=== PATIENT | female | born 1975 | race Caucasian/White ===

== ENCOUNTER 2020-09-06 15:18 | Outpatient (CLI) | payer BC, SELFPAY ==
--- NOTE | 2020-09-06 15:26 | XR_ITS ---
WS: [id number] Exam: XR foot LT 2V [id number] Date/Time of Exam: 09/06/2020 3:29 PM Reason For Exam: FOOT PAIN, LEFT No fracture or dislocation. Large plantar heel spur noted. No soft tissue foreign bodies are seen. XR/XR foot LT 2V [id number] IMPRESSION: 1. No fracture identified. Large plantar heel spur.
== END 2020-09-06 15:19 | disposition home or self-care (01) ==
PROVIDERS: PCP Family Medicine; Visit Provider Family Medicine
DX: M79.672 Pain in left foot (principal); M77.32 Calcaneal spur, left foot
CPT/HCPCS: 73620

== ENCOUNTER → 2021-08-13 07:59 | Outpatient (BNVA) | payer BC, SELFPAY | PROVIDERS: PCP Family Medicine; Visit Provider Podiatrist Foot & Ankle Surgery | DX: M25.571 Pain in right ankle and joints of right foot (principal); M79.671 Pain in right foot; M25.871 Other specified joint disorders, right ankle and foot; M25.371 Other instability, right ankle; G89.29 Other chronic pain; M76.71 Peroneal tendinitis, right leg | CPT/HCPCS: 73610 ==

== ENCOUNTER 2021-12-14 08:16 | Day surgery (SDC) | payer BC, SELFPAY ==
[2021-12-14] VITALS (15 sets, daily range): BP systolic 107–157; BP diastolic 68–106; PULSE 72–100; RESP 12–18; TEMP 36.3–36.6; O2SAT 95–100
--- NOTE | 2021-12-14 | SCC_ITS ---
Procedure done: Right peroneal tendon repair. CPT code 06361 Right modified Brostr?m. CPT code 64404 Deep hardware removal right foot. CPT code 97072 54 seconds of fluoroscopic guidance, for a cumulative dose of 1.5 mGy, was provided to Dr. Peres by the radiology department. C-arm images of the RIGHT foot were saved for the patient's permanent record. [facility]
[2021-12-14] MEDS: sodium chloride 0.9% 1,000 ML 30 ML IV (08:54)
[2021-12-14] MEDS: CELEcoxib 200 mg Capsule 400 MG PO (08:57)
[2021-12-14] MEDS: gabapentin 300 mg Capsule PO (08:57)
[2021-12-14] MEDS: HYDROmorphone 1 mg/mL INJ 1 mL 0.5 MG IVP (09:22)
--- NOTE | 2021-12-14 09:47 | SUR.PREOP ---
0925-Timeout was performed at bedside with anesthesia, block was performed and patient tolerated well.
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
--- NOTE | 2021-12-14 09:51 | P.ANESASSM_ITS ---
Pre-Anesthetic Assessment Height/Weight: Height 1.7 m Weight 97.522 kg Temp Pulse Resp BP Pulse Ox O2 Del Method 97.5 F L 79 17 157/106 96 12/14/21 08:45 12/14/21 08:45 12/14/21 09:22 12/14/21 08:45 12/14/21 09:22 12/14/21 08:45 Preop Diagnosis: Chronic right lateral ankle instability with impingement Operation Date: 12/14/21 09:45 Proposed Procedures p Peroneal tendon repair, modified Brostr?m, ankle scope and possible calcaneal osteotomy all right lower extremity 27087,72315,73634,M25.871,M25.371,M25. 571,M76.71(Right) - DEJA Greenberg Tendon Repair Foot(Right) - DEJA Greenberg Decompression Osteotomy(Right) - DEJA Greenberg Brostrom Procedure Modified Rashmi(Right) - Vince Peres DPM Familial anesthetic complications: None Was Beta Clint taken within 24 hours: N/A Was Clonidine taken within 24 hours: N/A Last intake: Intake Last Liquid Date 12/13/21 Last Liquid Time 23:30 Last Solid Date 12/13/21 Last Solid Time 22:00 Social No alcohol and No tobacco Exam alert, oriented x 3, clear to auscultation bilaterally and regular rate & rhythm Airway Submandibular: within normal limits Cervical ROM: within normal limits Mallampati: Class II Dentition: full Pulmonary seasonal allergies Metabolic Morbid Obesity Anesthetic Plan ASA status: 2 Anesthesia: General and Regional (specify below) (Popliteal block) Medications/Allergies Home Medications Medication Instructions Recorded Confirmed Last Taken Type cetirizine 10 mg capsule (Zyrtec) 10 mg PO DAILY PRN Allergy Symptoms 08/13/21 12/14/21 12/13/21 History multivitamin 1 tab PO DAILY 08/13/21 12/14/21 12/13/21 History naproxen sodium 220 mg capsule 220 mg PO BID PRN Pain 08/13/21 12/14/21 12/13/21 History (Aleve) fluticasone propionate 50 2 spray intranasal DAILY 12/13/21 12/14/21 12/13/21 History mcg/actuation nasal spray,suspension Allergies Allergy/AdvReac Type Severity Reaction Status Date / Time codeine Allergy Intermediate ADR/ALGY-Hy Verified 12/14/21 08:42 potension dermaplast Allergy ALGY-Rash Uncoded 12/13/21 12:18 Current Medications Generic Name Dose Route Start Last Admin Trade Name Dexter PRN Reason Stop Dose Admin Sodium Chloride 1,000 mls @ 30 mls/hr 12/14/21 08:30 12/14/21 08:54 Sodium Chloride 0.9% IV 12/15/21 08:29 30 mls/hr .Q24H MYKE Administration Data Anesthesia Cardiac Studies: No Data to Display Anesthesia Procedures Nerve Block Nerve Block 1: Main Anesthesia: general anesthesia Time Out Performed: Yes Consent: requested by attending/covering physician, from patient, risks and benefits reviewed and patient agrees to proceed Nerve block location: popliteal (right) Anesthesia monitors applied: pulse oximetry, EKG, BP cuff and oxygen Nerve block position: semi sitting Anesthetic Used: ropivicaine 0.5% Amount of anesthesia used (mL): 30 Ultrasound used to: recognize landmarks Nerve Stimulator Used?: No Interscalene/Femoral BLK: 4 stimuplex 21 g needle used for position and inplane approach Injection: neg aspiration of heme Patient Tolerated Procedure: well Complications: none
--- NOTE | 2021-12-14 09:53 | W.PM.OPSUD ---
Surgery/Procedure H&P Update DATE OF PROCEDURE: December 14, 2021 DATE H&P PERFORMED: 08/13/21 CHANGES TO PREVIOUS DOCUMENTATION: None PREOP DIAGNOSIS: Chronic right lateral ankle instability with impingement PLANNED PROCEDURE: Operation Date: 12/14/21 09:45 Proposed Procedures p Peroneal tendon repair, modified Brostr?m, ankle scope and possible calcaneal osteotomy all right lower extremity 91520,24765,44038,M25.871,M25.371,M25.571,M76.71(Right) - DEJA Greenberg Tendon Repair Foot(Right) - DEJA Greenberg Decompression Osteotomy(Right) - DEJA Greenbergstrom Procedure Modified Rashmi(Right) - Vince Peres DPM
[2021-12-14] MEDS: ceFAZolin 2,000 MG in sodium chloride 0.9% (plus) 50 ML 100 MG IV (10:01)
--- NOTE | 2021-12-14 12:34 | XR_ITS ---
WS: [id number] Right foot, 3 views, 12/14/2021 Clinical Data: post op Comparison: Right ankle, 08/13/2021. Findings: No fractures or dislocations are seen. No bone destruction or erosion is noted. The joint spaces and soft tissues are normal. Small orthopedic anchors were removed from the distal right fibula and from the lateral talus. There is a plantar spur. XR/XR foot RT min 3V* [id number] Impression: Removal of orthopedic anchors from distal right fibula and lateral talus.
--- NOTE | 2021-12-14 12:59 | SUR.PHASEI ---
12:25 RECEIVED PT FROM OR STAFF. SPONTANEOUS RESPIRATIONS. VENTILATING WELL. NSR ON MONITOR. 12:40 ORAL AIRWAY DC'ED. PT RESPONDING TO VERBAL. AIRWAY CLEAR. 12:45 BEDSIDE X RAYS DONE. 12:50 RESPONDS TO VERBAL COMMANDS. ROM AND SENSATION OF RIGHT TOES.
--- NOTE | 2021-12-14 13:36 | ANE.PACU2 ---
Inpatient post-anesthesia follow up: Airway intact: Yes Vital signs: Temperature 97.8 F Pulse Rate 85 Respiratory Rate 16 Blood Pressure 150/98 Pulse Oximetry 96 Oxygen Delivery Me thod Room Air Oxygen Flow Rate 8 Fraction of Inspir ed Oxygen Hydration adequate: Yes Nausea and vomiting: No Pain level: 2 Pain level: BP at pre op baseline Mental status: Baseline
[2021-12-14] MEDS: oxyCODONE-APAP 5-325 mg Tablet 1 TAB PO (13:42)
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
== END 2021-12-14 14:10 | disposition home or self-care (01) ==
PROVIDERS: PCP Family Medicine; Visit Provider Podiatrist Foot & Ankle Surgery
PROC: (CPT 20680; 2021-12-14 09:45)
PROC: (CPT 27698; 2021-12-14 09:45)
DX: M25.371 Other instability, right ankle (principal); E66.01 Morbid (severe) obesity due to excess calories; Z68.33 Body mass index [BMI] 33.0-33.9, adult; M25.571 Pain in right ankle and joints of right foot; G89.29 Other chronic pain; M76.71 Peroneal tendinitis, right leg
CPT/HCPCS: 20680; 27658; 27695; 73630; 76000; C1713; J1100; J1170; J1200; J2250; J2405; J2704; J2795; J3010; J3490; J7030

== ENCOUNTER → 2021-12-27 14:02 | Outpatient (BNVA) | payer BC, SELFPAY | PROVIDERS: PCP Family Medicine; Visit Provider Podiatrist Foot & Ankle Surgery | DX: Z98.890 Other specified postprocedural states (principal); M79.89 Other specified soft tissue disorders | CPT/HCPCS: 73610 ==

== ENCOUNTER 2021-12-27 14:54 | Outpatient (CLI) | payer BC, SELFPAY | END 2021-12-27 14:55 | disposition home or self-care (01) | LOC: SPT 14:55 | PROVIDERS: PCP Family Medicine; Visit Provider Podiatrist Foot & Ankle Surgery | DX: Z47.89 Encounter for other orthopedic aftercare (principal) | CPT/HCPCS: L1902 ==

== ENCOUNTER 2022-01-02 13:28 | Outpatient (RCR) | payer BC, SELFPAY | END 2022-01-09 23:59 | disposition home or self-care (01) | LOC: SPT 13:28 | PROVIDERS: PCP Family Medicine; Visit Provider Podiatrist Foot & Ankle Surgery | DX: Z47.89 Encounter for other orthopedic aftercare (principal) | CPT/HCPCS: 97110; 97161 ==

== ENCOUNTER 2022-01-10 06:00 | Outpatient (RCR) | payer BC, SELFPAY | END 2022-02-08 23:59 | disposition home or self-care (01) | LOC: SPT 06:00 | PROVIDERS: PCP Family Medicine; Visit Provider Podiatrist Foot & Ankle Surgery | DX: Z47.89 Encounter for other orthopedic aftercare (principal); M25.571 Pain in right ankle and joints of right foot | CPT/HCPCS: 97110 ==

== ENCOUNTER 2022-02-09 06:00 | Outpatient (RCR) | payer BC, SELFPAY | END 2022-02-27 23:59 | disposition home or self-care (01) | LOC: SPT 06:00 | PROVIDERS: PCP Family Medicine; Visit Provider Podiatrist Foot & Ankle Surgery | DX: Z47.89 Encounter for other orthopedic aftercare (principal); M25.571 Pain in right ankle and joints of right foot | CPT/HCPCS: 97110 ==

== ENCOUNTER 2022-11-29 15:24 | Outpatient (CLI) | payer BC, SELFPAY ==
--- NOTE | 2022-11-29 15:41 | MM_ITS ---
WS: [id number] BILATERAL 3D TOMOSYNTHESIS DIGITAL SCREENING MAMMOGRAPHY WITH CAD CLINICAL INFORMATION: screening HISTORY: Screening mammogram. No current complaints. COMPARISON: 2019 TECHNIQUE: Bilateral CC and MLO views. FINDINGS: The breasts are composed of heterogeneous fibroglandular density tissue, which can limit the detectio n of small underlying mass lesions. Nodular parenchymal densities RIGHT breast. No suspicious mass, a symmetry, calcifications, or architectural distortion. No evidence of malignancy. Punctate and lucent centered calcifications. MM/[place] [id number] IMPRESSION: BI-RADS: 2-Benign FOLLOW UP: 1 Year Follow-up Recommend return to annual screening mammography.
== END 2022-11-29 15:25 | disposition home or self-care (01) ==
LOC: RAD 15:38 → MOBLMAM 15:40
PROVIDERS: PCP Family Medicine; Visit Provider Family Medicine
DX: Z12.31 Encounter for screening mammogram for malignant neoplasm of breast (principal)
CPT/HCPCS: 77063; 77067

== ENCOUNTER → 2022-12-02 10:18 | Outpatient (BNVA) | payer BC, SELFPAY | PROVIDERS: PCP Family Medicine; Visit Provider Family Medicine | DX: I10 Essential (primary) hypertension (principal) | CPT/HCPCS: 80053; 80061; 84443 ==

== ENCOUNTER → 2023-01-03 09:48 | Outpatient (BNVA) | payer BC, SELFPAY | PROVIDERS: PCP Family Medicine; Visit Provider Family Medicine | DX: I10 Essential (primary) hypertension (principal) | CPT/HCPCS: 80048; 80053; 80061; 84443 ==

== ENCOUNTER 2023-10-08 05:47 | Day surgery (SDC) | payer BC, SELFPAY ==
[2023-10-08] VITALS (10 sets, daily range): BP systolic 109–155; BP diastolic 62–95; PULSE 69–94; RESP 12–18; TEMP 36.1–36.8; O2SAT 91–97; BMI 32.7
[2023-10-08] MEDS: ketorolac 30 mg/mL INJ IVP (06:24)
[2023-10-08] MEDS: sodium chloride 0.9% 1,000 ML 30 ML IV (06:28)
[2023-10-08] MEDS: acetaminophen 1,000 MG/100 ML PIGGYBACK 400 MG IV (06:28)
[2023-10-08] MEDS: scopolamine 1.5 Patch 1 PATCH TRANSDERMA (06:31)
--- NOTE | 2023-10-08 06:48 | ANES.PREANE2 ---
Pre-Anesthetic Assessment Height/Weight: Height 1.7 m Weight 94.801 kg Temp Pulse Resp BP Pulse Ox O2 Del Method 97.3 F L 80 17 155/95 96 Room Air 10/08/23 06:13 10/08/23 06:13 10/08/23 06:13 10/08/23 06:13 10/08/23 06:13 10/08/23 06:14 Operation Date: 10/08/23 07:00 Proposed Procedures p Cubital Tunnel Release(Left) - Tyron Worcester, DO s Ulnar Nerve Transposition(Left) - Tyron Worcester, DO Familial anesthetic complications: None Was Beta Clint taken within 24 hours: N/A Was Clonidine taken within 24 hours: N/A Last intake: Intake Last Liquid Date 10/07/23 Last Liquid Time 23:00 Last Solid Date 10/07/23 Last Solid Time 19:00 Social No alcohol and No tobacco Airway Mallampati: Class I Dentition: other (R lower bridge) CV/HEM Hypertension Metabolic Hyperlipidemia Anesthetic Plan ASA status: 2 Anesthesia: MAC Risk of > 500 ml blood loss (7ml/kg in children): No Medications/Allergies Home Medications Medication Instructions Recorded Confirmed Last Taken Type cetirizine 10 mg capsule (Zyrtec) 10 mg PO DAILY PRN Allergy Symptoms 08/13/21 10/07/23 10/07/23 History multivitamin 1 tab PO DAILY 08/13/21 10/08/23 10/07/23 History fluticasone propionate 50 2 spray intranasal DAILY 12/13/21 10/07/23 10/07/23 History mcg/actuation nasal spray,suspension ibuprofen 800 mg tablet 800 mg PO Q8H 7 days #21 tabs 12/17/21 10/07/23 Unknown Rx ASO to the right #1 ea 12/27/21 10/07/23 Unknown Rx scopolamine base 1 mg over 3 days 1 patch transdermal Q3D PRN nausea 11/07/22 10/07/23 Unknown Rx transdermal patch and vomiting #10 ea pseudoephedrine HCl 30 mg tablet 30 mg PO Q6H PRN nasal congestion 09/16/23 10/07/23 10/07/23 Rx (Sudafed) #60 tabs Allergies Allergy/AdvReac Type Severity Reaction Status Date / Time codeine Allergy Intermediate ADR/ALGY-Hy Verified 10/08/23 06:08 potension hydrochlorothiazide AdvReac Intermediate hyponatremi Verified 10/08/23 06:08 a dermaplast Allergy ALGY-Rash Uncoded 10/08/23 06:08 Current Medications Generic Name Dose Route Start Last Admin Trade Name Freq PRN Reason Stop Dose Admin Sodium Chloride 1,000 mls @ 30 mls/hr 10/08/23 06:15 10/08/23 06:28 Sodium Chloride 0.9% IV 10/09/23 06:14 30 mls/hr .Q24H MYKE Administration PFSH Anesthesia Medical History (Updated 10/07/23 @ 15:29 by Marcos Quinonez MD) Hyperlipidemia Hypertension Social History Smoking and tobacco/nicotine status: former use of tobacco/nicotine Alcohol intake: never Data Anesthesia Cardiac Studies: No Data to Display
--- NOTE | 2023-10-08 06:57 | P.HP_ITS ---
Same Day Surgery H&P Indication for Procedure/HPI DATE OF PROCEDURE: October 08, 2023 CHIEF COMPLAINT/INDICATIONFOR SURGICAL PROCEDURE: Left cubital tunnel syndrome PREOP DIAGNOSIS: Left cubital tunnel syndrome PLANNED PROCEDURE: Operation Date: 10/08/23 07:00 Proposed Procedures p Cubital Tunnel Release(Left) - Tyron Stefano, DO s Ulnar Nerve Transposition(Left) - Tyron Calaveras, DO Medications/Allergies* Home Medications Medication Instructions Recorded Confirmed Type cetirizine 10 mg capsule (Zyrtec) 10 mg PO DAILY PRN Allergy Symptoms 08/13/21 10/07/23 History multivitamin 1 tab PO DAILY 08/13/21 10/08/23 History fluticasone propionate 50 2 spray intranasal DAILY 12/13/21 10/07/23 History mcg/actuation nasal spray,suspension Allergies/Adverse Reactions Allergy/AdvReac Type Severity Reaction Status Date / Time codeine Allergy Intermediate ADR/ALGY-Hy Verified 10/08/23 06:08 potension hydrochlorothiazide AdvReac Intermediate hyponatremi Verified 10/08/23 06:08 a dermaplast Allergy ALGY-Rash Uncoded 10/08/23 06:08 Current Medications: Generic Name Dose Route Start Last Admin Trade Name Freq PRN Reason Stop Dose Admin Sodium Chloride 1,000 mls @ 30 mls/hr 10/08/23 06:15 10/08/23 06:28 Sodium Chloride 0.9% IV 10/09/23 06:14 30 mls/hr .Q24H MYKE Administration Pertinent History/Comorbid Conditions* Medical History (Updated 10/07/23 @ 15:29 by Marcos Quinonez MD) Hyperlipidemia Hypertension Social History Smoking and tobacco/nicotine status: former use of tobacco/nicotine Alcohol intake: never Pertinent Exam Findings alert, oriented x 3, operative site marked and procedure specific exam findings Please refer to detailed orthopedic examination on 08/19/2023: Left Upper Extremity: Negative Spurling's and normal C-spine range of motion. Negative Sierra's. Negative Tinel's on the left shoulder. Mild tenderness to palpation and positive Tinel's over the elbow with some radicular and numbness and tingling in the ulnar nerve distribution. negative median nerve compression test. negative Tinel's at the carpal tunnel. neg Phalen's. Negative Tinel's over the superficial radial nerve. Negative tenderness over the lateral epicondyle. Negative radial tunnel. No Tinel's over the radial tunnel and negative resistance of the middle finger of the left hand. Mild intrinsic weakness noted, good thenar strength and no atrophy. Recommendations Surgery/Procedure today Other Plans: Plan to proceed to the OR left cubital tunnel release with pulmonary transposition Patient understands risk benefits complication alternatives of surgery elects proceed with surgery invention all questions answered at this time. Coding Level of Care Code Acute Code for [facility]
[2023-10-08] MEDS: ceFAZolin 2,000 MG in sodium chloride 0.9% (plus) 50 ML 100 MG IV (07:02)
[2023-10-08] MEDS: ROPivacaine 0.5% SDV 30 mL 25 MG INJECTION (07:31)
[2023-10-08] MEDS: lidocaine-epi 1% 20 mL INJ 5 ML INJECTION (07:31)
--- NOTE | 2023-10-08 08:04 | P.BOP_ITS ---
Date of Procedure: [10/08/2023] Surgeon: Tyron Agarwal DO Body Builder Apprentice(s): Michoacano Agarwal PA-C Procedure(s) performed: Left cubital tunnel release (ulnar nerve decompression at the elbow) Findings of the procedure(s): Patient found to have left cubital tunnel syndrome underwent left cubital tunnel release without any issues or complications. Estimated blood loss: 5 mL Specimen(s) removed: None Post-operative diagnosis: Left cubital tunnel syndrome
--- NOTE | 2023-10-08 08:07 | P.OP_ITS ---
Operative Report Date of procedure: October 08, 2023 Surgeon: Tyron Agarwal DO Home Visitor: Michoacano Agarwal PA-C: PA was necessary for assistance in this case with hand positioning to execute the procedure, retraction and protection of neurovascular structures as well as to assist with wound closure and dressing application. Procedure: Preoperative diagnosis: Left cubital tunnel syndrome Post-op diagnosis:? Left?cubital?tunnel syndrome Post-op findings: See operative note Procedure done: Left?cubital?tunnel release(ulnar nerve decompression) Surgeon: Tyron Agarwal DO Estimated blood loss: 5 cc Tourniquet Time: 18 minutes IV fluids: See anesthesia record Complications: None Findings: See operative report narrative Condition: stable Disposition: same day Brief History: Patient is a pleasant 48-year-old female was seen evaluated in the outpatient setting for Left ulnar nerve neuropathy at the elbow.? Patient had EMG findings that demonstrated normal peripheral nerves however patient's failed conservative treatment and on clinical examination has positive Tinel's directly over the cubital tunnel consistent with her symptomatology.? ?On my examination in the office patient findings are consistent with this preoperative diagnosis. We had detailed discussion in office about continued nonoperative intervention versus operative intervention.? Patient understands the risk benefits complications alternatives to surgical and nonsurgical treatment options.? Patient understands the risks include but not limited to make it better, make it worse, infection, permanent injury to nerve, decreased function and sensation to the hand with persistent weakness.? Given these risks patient understands and agrees to proceed with current plan.? Patient elects to proceed with a Left?cubital?tunnel release with possible ulnar nerve transposition. all questions answered. Procedure: Patient was seen and evaluated in the preoperative holding area.? The consent that was filled out in office was reviewed with patient and confirmed to be appropriate for Left ulnar nerve?cubital?tunnel release and possible ulnar nerve transposition.? Correct extremity was then marked.? Patient was seen evaluated by the preoperative team as well as anesthesia department.? Once cleared for surgery patient was then taken to the operative suite and transported onto the operative table all bony prominences were well-padded and patient was secured to the table.? Left upper extremity was placed on an armboard.? Patient then underwent anesthesia per the anesthesia department. Patient's Left upper extremity was then prepped and draped in standard orthopedic fashion.? This point a final timeout was performed. Patient received appropriate preop antibiotics. The Left upper extremity sterile tourniquet was applied. Esmarch tourniquet was used to exsanguinate the operative extremity and was insufflated to 250 mmHg.? Standard curvilinear incision was made centering over the ulnar nerve between the medial epicondyle and olecranon process.? Sharp scalpel excision through skin and subcutaneous tissue was performed.? Once I encountered subcutaneous tissue I then utilized dissection scissors to spread in the path of the [facility] and care was made to protect any nerve branches throughout this case.? I then utilized a scalpel to complete my dissection directly on over to the flexor pronator mass and elevated this fat tissue directly off of the fascia.? I started my dissection of the ulnar nerve the nerve proximally.? Once identified I then utilized Littler dissection scissors and decompress the nerve completely and proximally and utilized blunt dissection to make sure there was no entrapment proximally..? Once decompressed proximally I then traced the nerve distal through Blanchard's ligament and as it entered the FCU fascia aponeurosis and completed by decompression distally.? Patient's most pronounced area of entrapment was over Blanchard's ligament where there was hourglassing of the ulnar nerve. The nerve was completely released in situ no areas of entrapment I was able to place my finger distally and proximally with no areas entrapment along the nerve.? At this point in time by in situ release was completed I then subsequently took the elbow through range of motion and there was no subluxation of the ulnar nerve. Therefore no transposition was required. Wound bed was then thoroughly irrigated.? Tourniquet was deflated.? Maintained exact hemostasis with bipolar electrocautery.? As result the skin was reapproximated with interrupted Vicryl subcutaneous suture 3-0.? I next utilized a running mattress stitch with 3-0 nylon.? Extremity was then cleaned and the incision was then covered with Xeroform 4 x 4's ABD Curlex and soft roll an Kolby wrap.? Patient was then awakened from anesthesia and taken to PACU in stable condition. Disposition: Patient taken to PACU in stable condition.? Patient given appropriate discharge instructions as well as pain medication.? Patient will see me in office in 2 weeks.? pt understands? if they has any questions they can contact the office.
--- NOTE | 2023-10-08 08:14 | P.PCN_ITS ---
PACU note Narrative: Patient is a 48-year-old female just underwent a left cubital tunnel release. Patient transferred to PACU in stable condition. Pain is well controlled. Dressing on hand is dry and in place. Patient's fingers are warm and well- perfused. Patient can wiggle fingers. normal cap refill under 2 seconds. Patient has normal elbow range of motion. Sensation to hand intact. Exam: awake Disposition: discharged
--- NOTE | 2023-10-08 09:25 | ANE.PACU2 ---
Inpatient post-anesthesia follow up: Airway intact: Yes Vital signs: Temperature 97.8 F Pulse Rate 69 Respiratory Rate 18 Blood Pressure 125/80 Pulse Oximetry 97 Oxygen Delivery Me thod Room Air Oxygen Flow Rate 6 Fraction of Inspir ed Oxygen Hydration adequate: Yes Nausea and vomiting: No Pain level: 1 Mental status: Baseline
== END 2023-10-08 09:27 | disposition home or self-care (01) ==
PROVIDERS: PCP Family Medicine; Visit Provider Student in an Organized Health Care Education/Training Program
PROC: (CPT 64718; principal; 2023-10-08 07:00)
DX: G56.22 Lesion of ulnar nerve, left upper limb (principal); I10 Essential (primary) hypertension; E78.5 Hyperlipidemia, unspecified
CPT/HCPCS: 64718; J0131; J0690; J1100; J1885; J2405; J2704; J2795; J3010; J7030

== ENCOUNTER → 2024-05-25 10:46 | Outpatient (BNVA) | payer BC, SELFPAY | PROVIDERS: PCP Family Medicine; Visit Provider Family Medicine | DX: I10 Essential (primary) hypertension (principal); E78.5 Hyperlipidemia, unspecified | CPT/HCPCS: 80053; 80061 ==

== ENCOUNTER 2024-06-04 14:58 | Outpatient (CLI) | payer BC, SELFPAY ==
--- NOTE | 2024-06-04 15:00 | MM_ITS ---
WS: [id number] BILATERAL 3D TOMOSYNTHESIS DIGITAL SCREENING MAMMOGRAPHY WITH CAD CLINICAL INFORMATION: screening HISTORY: Screening mammogram. No current complaints. COMPARISON: 2022 TECHNIQUE: Bilateral CC and MLO views. FINDINGS: The breasts are composed of heterogeneous fibroglandular density tissue, which can limit the detectio n of small underlying mass lesions. No suspicious mass, asymmetry, calcifications, or architectural d istortion. No evidence of malignancy. Incidental punctate and lucent centered calcifications. MM/MM [facility] tomosynthesis [id number] IMPRESSION: DENSITY: The breasts are heterogeneously dense, which may obscure small masses. BI-RADS: 2 - Benign FOLLOW UP: 1 Year Follow-up Recommend return to annual screening mammography.
== END 2024-06-04 14:59 | disposition home or self-care (01) ==
LOC: RAD 14:59
PROVIDERS: PCP Family Medicine; Visit Provider Family Medicine
DX: Z12.31 Encounter for screening mammogram for malignant neoplasm of breast (principal); R92.333 Mammographic heterogeneous density, bilateral breasts; R92.1 Mammographic calcification found on diagnostic imaging of breast
CPT/HCPCS: 77063; 77067

== ENCOUNTER 2024-07-08 09:06 | Day surgery (SDC) | payer BC, SELFPAY ==
--- NOTE | 2024-07-08 09:22 | P.HPUD_ITS ---
Surgery/Procedure H&P Update DATE OF PROCEDURE: July 08, 2024 DATE H&P PERFORMED: 06/15/24 H&P UPDATE INFORMATION: I have reviewed H&P completed within last 30 days, I have examined patient prior to procedure, No changes to prior documentation and H&P is in [facility] EMR on date indicated PLANNED PROCEDURE: Operation Date: 07/08/24 10:20 Proposed Procedures p Colonoscopy [id number], G0121, Z12.11(Not Applicable) - Torsten Khan MD
--- NOTE | 2024-07-08 09:22 | W.PM.OPSUD ---
Surgery/Procedure H&P Update DATE OF PROCEDURE: July 08, 2024 DATE H&P PERFORMED: 06/15/24 H&P UPDATE INFORMATION: I have reviewed H&P completed within last 30 days, I have examined patient prior to procedure, No changes to prior documentation and H&P is in [facility] [place] on date indicated PLANNED PROCEDURE: Operation Date: 07/08/24 10:20 Proposed Procedures p Colonoscopy [id number], G0121, Z12.11(Not Applicable) - Torsten Khan MD
[2024-07-08 09:24] VITALS: BP 132/94; PULSE 106; RESP 16; TEMP 36.5; O2SAT 97
[2024-07-08] MEDS: sodium chloride 0.9% 1,000 ML 30 ML IV (09:31)
--- NOTE | 2024-07-08 09:36 | ANES.PREANE2 ---
Pre-Anesthetic Assessment Height/Weight: Height 1.7 m Temp Pulse Resp BP Pulse Ox O2 Del Method 97.7 F 106 H 16 132/94 97 Room Air 07/08/24 09:24 07/08/24 09:24 07/08/24 09:24 07/08/24 09:24 07/08/24 09:24 07/08/24 09:24 Operation Date: 07/08/24 10:20 Proposed Procedures p Colonoscopy [id number], G0121, Z12.11(Not Applicable) - Torsten Khan MD Familial anesthetic complications: None Was Beta Clint taken within 24 hours: N/A Was Clonidine taken within 24 hours: N/A Last intake: Intake Last Liquid Date 07/07/24 Last Liquid Time 23:30 Last Solid Date 07/06/24 Last Solid Time 20:00 Social No alcohol and No tobacco Exam alert, oriented x 3, clear to auscultation bilaterally and regular rate & rhythm Airway Submandibular: within normal limits Cervical ROM: within normal limits Mallampati: Class II Comments: Comments: Right lower bridge History/ROS No significant history except as noted and No significant complaints Pulmonary None reported CV/HEM Hypertension None reported Hepatic None reported GI None reported Metabolic Hyperlipidemia [facility] Rheumatoid Arthritis Neuropsych None reported Anesthetic Plan ASA status: 2 Anesthesia: General and MAC Risk of > 500 ml blood loss (7ml/kg in children): No Medications/Allergies Home Medications ?Medication ?Instructions ?Recorded ?Confirmed ?Last Taken ?Type cetirizine 10 mg capsule (Zyrtec) 10 mg PO DAILY PRN Allergy Symptoms 08/13/21 07/08/24 07/07/24 History multivitamin 1 tab PO DAILY 08/13/21 07/08/24 07/07/24 History fluticasone propionate 50 2 spray intranasal DAILY PRN 12/13/21 07/08/24 10/07/23 History mcg/actuation nasal Allergic Symptoms spray,suspension scopolamine base 1 mg over 3 days 1 patch transdermal Q3D PRN nausea 11/07/22 07/08/24 Unknown Rx transdermal patch and vomiting #10 ea pseudoephedrine HCl 30 mg tablet 30 mg PO Q6H PRN nasal congestion 04/13/24 07/08/24 07/07/24 Rx (Sudafed) #60 tabs ondansetron HCl 4 mg tablet 4 mg PO Q8H PRN nausea and 06/15/24 07/08/24 Unknown Rx vomiting #3 tabs Allergies Allergy/AdvReac Type Severity Reaction Status Date / Time codeine Allergy Intermediate ADR/ALGY-Hy Verified 07/08/24 09:21 potension aloe vera (From Dermoplast) Allergy ALGY-Rash Verified 07/08/24 09:21 benzocaine (From Dermoplast) Allergy ALGY-Rash Verified 07/08/24 09:21 lanolin (From Dermoplast) Allergy ALGY-Rash Verified 07/08/24 09:21 hydrochlorothiazide AdvReac Intermediate hyponatremi Verified 07/08/24 09:21 a Current Medications Generic Name Dose Route Start Last Admin Trade Name Freq PRN Reason Stop Dose Admin Sodium Chloride 1,000 mls @ 30 mls/hr 07/08/24 09:30 07/08/24 09:31 Sodium Chloride 0.9% IV 30 mls/hr .Q24H MYKE Administration PFSH Anesthesia Medical History Hyperlipidemia Hypertension Social History Smoking and tobacco/nicotine status: unknown if used tobacco/nicotine Alcohol intake: never Data Anesthesia Cardiac Studies: No Data to Display
[2024-07-08 10:14] VITALS: BP 111/69; PULSE 91; RESP 18; TEMP 36.3; O2SAT 96
[2024-07-08 10:23] VITALS: BP 105/82; PULSE 94; RESP 18; TEMP 36.2; O2SAT 98
--- NOTE | 2024-07-08 10:50 | ANE.PACU2 ---
Inpatient post-anesthesia follow up: Airway intact: Yes Vital signs: Temperature 97.2 F Pulse Rate 94 Respiratory Rate 18 Blood Pressure 105/82 Pulse Oximetry 98 Oxygen Delivery Me thod Room Air Oxygen Flow Rate Fraction of Inspir ed Oxygen Hydration adequate: Yes Nausea and vomiting: No Pain level: 1 Mental status: Baseline
== END 2024-07-08 10:52 | disposition home or self-care (01) ==
PROVIDERS: PCP Family Medicine; Visit Provider Surgery
PROC: 0DJD8ZZ Inspection of Lower Intestinal Tract, Via Natural or Artificial Opening Endoscopic (ICD-10-PCS; CPT 45378; principal; 2024-07-08 10:20)
DX: Z12.11 Encounter for screening for malignant neoplasm of colon (principal); D12.5 Benign neoplasm of sigmoid colon; K57.30 Diverticulosis of large intestine without perforation or abscess without bleeding; I10 Essential (primary) hypertension; E78.5 Hyperlipidemia, unspecified; M06.9 Rheumatoid arthritis, unspecified; Z79.899 Other long term (current) drug therapy; Z88.5 Allergy status to narcotic agent; Z88.8 Allergy status to other drugs, medicaments and biological substances
CPT/HCPCS: 45385; 88305; J2704; J7030

== ENCOUNTER → 2024-10-05 10:18 | Outpatient (BNVA) | payer BC, SELFPAY | PROVIDERS: PCP Family Medicine; Visit Provider Student in an Organized Health Care Education/Training Program | DX: M77.12 Lateral epicondylitis, left elbow (principal); Z98.890 Other specified postprocedural states | CPT/HCPCS: 73080 ==

== ENCOUNTER → 2025-04-29 09:42 | Outpatient (BNVA) | payer BC, SELFPAY | PROVIDERS: PCP Family Medicine; Visit Provider Nurse Practitioner Women's Health | DX: R23.2 Flushing (principal); N91.2 Amenorrhea, unspecified; R53.83 Other fatigue | CPT/HCPCS: 80053; 80061; 82306; 82607; 82670; 82728; 82746; 83001; 83036; 83540; 84439; 84443; 84481; 85025 ==